=== PATIENT | female | born 1935 | race Caucasian/White ===

== ENCOUNTER 2017-08-26 21:59 | Emergency (ER) | payer MEDICARE, OTHER ==
[~2017-08-26] VITALS: Ht 152.4 cm; Wt 63.5 kg
[2017-08-26 22:00] VITALS: BP 161/93; PULSE 59; RESP 20; TEMP 97.9; O2SAT 94
[2017-08-26] MEDS ORDERED: SODIUM CHLOR 0.9% 1000 ML INJ 1,000 ML IV SCH (22:08)
[2017-08-26] MEDS ORDERED: HYDR-3799 PO (22:14)
[2017-08-26] MEDS ORDERED: FOLI800T PO (22:14)
[2017-08-26] MEDS ORDERED: CLON.1 PO (22:14)
[2017-08-26] MEDS ORDERED: VALS320T6 PO (22:14)
[2017-08-26] MEDS ORDERED: VITATAB43 PO (22:14)
[2017-08-26] MEDS ORDERED: GABA300C5 PO (22:14)
[2017-08-26] MEDS ORDERED: AMLO5TAB2 PO (22:14)
[2017-08-26] MEDS ORDERED: ATEN25TA PO (22:14)
[2017-08-26] MEDS ORDERED: HYDR200T3 PO (22:14)
[2017-08-26] MEDS ORDERED: METH2.5T PO (22:14)
[2017-08-26] MEDS ORDERED: ONDANSETRON HCL 4 MG/2 ML VIAL IV ONE (22:15)
[2017-08-26 22:17] LABS: AUTOMATED NEUTROPHIL # 3.5 TH/MM3 (1.8-7.7); BASOPHIL # 0.1 TH/MM3 (0-0.2); BASOPHIL % 0.9 % (0.0-2.0); EOSINOPHIL # 0.1 TH/MM3 (0-0.4); EOSINOPHIL % 1.3 % (0.0-4.0); HEMATOCRIT 34.1 % (35.0-46.0); HEMO FLAGS DIFF FINAL; LYMPH % 35.5 % (9.0-44.0); LYMPHOCYTE # 2.4 TH/MM3 (1.0-4.8); MEAN CELL VOLUME 88.6 FL (80.0-100.0); MEAN CORPUSCULAR HEMOGLOBIN 29.9 PG (27.0-34.0); MEAN CORPUSCULAR HGB CONC 33.7 % (32.0-36.0); MONO % 9.5 % (0.0-8.0); NEUT % 52.8 % (16.0-70.0); PLATELET COUNT 187 TH/MM3 (150-450); RED BLOOD COUNT 3.85 MIL/MM3 (4.00-5.30); RED CELL DISTRIBUTION WIDTH 13.6 % (11.6-17.2); WHITE BLOOD COUNT 6.7 TH/MM3 (4.0-11.0)
[2017-08-26 22:28] LABS: CHLORIDE 103 MEQ/L (98-107); POTASSIUM 3.6 MEQ/L (3.5-5.1); SODIUM (NA) 136 MEQ/L (136-145)
--- NOTE | 2017-08-26 22:30 | PD ---
HPI Chief Complaint: Chest Pain Time Seen by Provider: 22:06 Travel History International Travel<30 days: No Contact w/Intl Traveler<30days: No Traveled to known affect area: No History of Present Illness HPI The patient is an 82-year-old female that at 8 PM began having chest pain in the lower midline sternal area as well as epigastrium. She had just checked her blood pressure and found that it was high and took some clonidine for this. She does have nausea and diaphoresis. She lives in [place] and called an ambulance from [place]. 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 Neither the patient nor the daughter know which valve this is. She denies any fever or vomiting blood. She denies any blood in the stool or melanotic stools. [facility] Social History Tobacco Use: No Allergies-Medications (Allergen,Severity, Reaction): Coded Allergies: aspirin (Verified Allergy, Unknown, HIVES, 08/26/17) Reported Meds & Prescriptions Reported Meds & Active Scripts Active Reported Folic Acid 0.8 Mg Tab 1 Mg PO DAILY Gabapentin 300 Mg Cap 300 Mg PO HS Methotrexate 2.5 Mg Tab 2.5 Mg PO Q7D Catapres (Clonidine) 0.1 Mg Tab 0.1 Mg PO TID Atenolol 25 Mg Tab 25 Mg PO BID Valsartan-Hydrochlorothiazide 320-25 Mg Tab 1 Tab PO DAILY Amlodipine (Amlodipine Besylate) 5 Mg Tab 5 Mg PO DAILY Vitamin L52-Xmofl Acid (Cobalamine Combinations) 500-400 Mcg Tab 1 Tab PO DAILY Hydroxychloroquine (Hydroxychloroquine Sulfate) 200 Mg Tab 200 Mg PO BID Takw with food Hydralazine HCl 25 Mg Tablet 25 Mg PO BID Physical Exam Narrative GENERAL: The patient is alert, slightly dehydrated-appearing, oriented 3 in moderate apparent distress with the nausea. The patient is actively vomiting when I saw her. The vital signs are normal except for a pulse rate of 59, blood pressure 161/93 and oximetry of 94%. SKIN: Focused skin assessment warm/dry. HEAD: Atraumatic. Normocephalic. EYES: Pupils equal and round. No scleral icterus. No injection or drainage. ENT: No nasal bleeding or discharge. Mucous membranes pink and moist. NECK: Trachea midline. No JVD. CARDIOVASCULAR: Regular rate and rhythm. No murmur appreciated. RESPIRATORY: No accessory muscle use. Clear to auscultation. Breath sounds equal bilaterally. GASTROINTESTINAL: Abdomen soft, with slight tenderness in the midline epigastrium to direct palpation, nondistended. Hepatic and splenic margins not palpable. No guarding or rebound is present. MUSCULOSKELETAL: No obvious deformities. No clubbing. No cyanosis. No edema. NEUROLOGICAL: Awake and alert. No obvious cranial nerve deficits. Motor grossly within normal limits. Normal speech. PSYCHIATRIC: Appropriate mood and affect; insight and judgment normal. Data Data Last Documented VS Vital Signs Date Time Temp Pulse Resp B/P (MAP) Pulse Ox O2 Delivery O2 Flow Rate FiO2 08/26/17 22:40 52 18 141/63 (89) 95 Room Air 08/26/17 22:00 97.9 Orders Orders Complete Blood Count With Diff (08/26/17 22:06) Comprehensive Metabolic Panel (08/26/17 22:06) Troponin I (08/26/17 22:06) B-Type Natriuretic Peptide (08/26/17 22:06) Lipase (08/26/17 22:06) Urinalysis - C+S If Indicated (08/26/17 22:06) Chest, Pa & Lat (08/26/17 22:06) Ondansetron Inj (Zofran Inj) (08/26/17 22:15) Sodium Chlor 0.9% 1000 Ml Inj (Ns 1000 M (08/26/17 22:08) Al-Mag Hy-Si 40-40-4 Mg/Ml Liq (Mag-Al P (08/26/17 22:45) Lidocaine 2% Viscous (Xylocaine 2% Visco (08/26/17 22:45) Famotidine Inj (Pepcid Inj) (08/26/17 22:45) Labs Laboratory Tests Test 08/26/17 22:05 White Blood Count 6.7 TH/MM3 Red Blood Count 3.85 MIL/MM3 Hemoglobin 11.5 GM/DL Hematocrit 34.1 % Mean Corpuscular Volume 88.6 FL Mean Corpuscular Hemoglobin 29.9 PG Mean Corpuscular Hemoglobin Concent 33.7 % Red Cell Distribution Width 13.6 % Platelet Count 187 TH/MM3 Mean Platelet Volume 7.7 FL Neutrophils (%) (Auto) 52.8 % Lymphocytes (%) (Auto) 35.5 % Monocytes (%) (Auto) 9.5 % Eosinophils (%) (Auto) 1.3 % Basophils (%) (Auto) 0.9 % Neutrophils # (Auto) 3.5 TH/MM3 Lymphocytes # (Auto) 2.4 TH/MM3 Monocytes # (Auto) 0.6 TH/MM3 Eosinophils # (Auto) 0.1 TH/MM3 Basophils # (Auto) 0.1 TH/MM3 CBC Comment DIFF FINAL Differential Comment Blood Urea Nitrogen 22 MG/DL Creatinine 0.79 MG/DL Random Glucose 150 MG/DL Total Protein 7.2 GM/DL Albumin 3.6 GM/DL Calcium Level 8.6 MG/DL Alkaline Phosphatase 69 U/L Aspartate Amino Transf (AST/SGOT) 23 U/L Alanine Aminotransferase (ALT/SGPT) 22 U/L Total Bilirubin 0.4 MG/DL Sodium Level 136 MEQ/L Potassium Level 3.6 MEQ/L Chloride Level 103 MEQ/L Carbon Dioxide Level 23.3 MEQ/L Anion Gap 10 MEQ/L Estimat Glomerular Filtration Rate 70 ML/MIN Troponin I LESS THAN 0.02 NG/ML B-Type Natriuretic Peptide 150 PG/ML Lipase 115 U/L [facility] Medical Decision Making Medical Screen Exam Complete: Yes Emergency Medical Condition: Yes Medical Record Reviewed: Yes Interpretation(s) The CBC is normal except for hemoglobin 11.5 and hematocrit of 34.1. The EKG shows sinus bradycardia with a rate of [address] otherwise no acute ST elevation or depression. The complete metabolic profile shows a BUN of 22, GFR of 70, glucose 150 but is otherwise unremarkable. The troponin I is normal and the lipase is normal. The BNP is 150. Differential Diagnosis Gastroesophageal reflux disease, ulcer pain, pancreatitis, electrolyte disorder , anemia, acute coronary syndrome, non-STEMI Narrative Course There is no evidence for acute coronary syndrome. The patient appears to have reproducible pain in the epigastrium. She appears to have reflux esophagitis. She will be given Zantac, omeprazole and Zofran. The patient wants to go home so she will go home and return here if there are any problems. She needs to follow-up with Dr. Arevalo this week or early next week. At this time her blood pressure is 144/63. She is not nauseated and she has no pain other than a slight epigastric pain. Diagnosis Primary Impression: Gastroesophageal reflux disease Additional Impression: Elevated blood pressure reading Additional Instructions: As we discussed, follow-up with Dr. Arevalo, hopefully this week. The Prilosec is one tablet daily and the Zantac is one tablet twice daily. Zofran is one tablet every 6 hours as needed for nausea. Med/Other Pt SpecificInfo: Prescription(s) given Scripts Ondansetron (Zofran) 4 Mg Tab 4 MG PO Q6HR Y for NAUSEA OR VOMITING, #30 TAB 0 Refills Prov: Dewayne Glez MD 08/26/17 Omeprazole (Omeprazole) 20 Mg Tab 20 MG PO DAILY, #30 TAB 0 Refills Prov: Dewayne Glez MD 08/26/17 Ranitidine (Zantac) 150 Mg Tab 150 MG PO BID for Reduce Stomach Acid, #60 TAB 0 Refills Prov: Dewayne Glez MD 08/26/17 Disposition: 01 DISCHARGE HOME Condition: Stable Dewayne Glez MD Aug 26, 2017 22:29
[2017-08-26 22:32] LABS: ANION GAP 10 MEQ/L (5-15); BICARBONATE 23.3 MEQ/L (21.0-32.0)
[2017-08-26 22:33] LABS: BLOOD UREA NITROGEN 22 MG/DL (7-18)
[2017-08-26 22:35] LABS: ALT (GPT) 22 U/L (10-53); AST (GOT) 23 U/L (15-37); GLOMERULAR FILTRATION RATE 70 ML/MIN (>89)
[2017-08-26 22:37] LABS: TOTAL BILIRUBIN ADULT 0.4 MG/DL (0.2-1.0)
[2017-08-26 22:38] LABS: ALKALINE PHOSPHATASE 69 U/L (45-117)
[2017-08-26 22:40] VITALS: BP 141/63; PULSE 52; RESP 18; O2SAT 95
[2017-08-26] MEDS ORDERED: ALUMINUM/MAGNESIUM/SIMETH 30 ML CUP PO ONE (22:45)
[2017-08-26] MEDS ORDERED: FAMOTIDINE 20 MG/2 ML VIAL IV PUSH ONE (22:45)
[2017-08-26] MEDS ORDERED: LIDOCAINE VISCOUS 2% SOLN 15 ML UDC PO ONE (22:45)
--- NOTE | 2017-08-26 22:47 | RADRPT ---
EXAM DATE/TIME: 08/26/2017 22:22 [place] COMPARISON: No previous studies available for comparison. INDICATIONS : Chest pain, weakness, vomiting starting today` MEDICAL HISTORY : None. SURGICAL HISTORY : None. ENCOUNTER: Initial ACUITY: 1 day PAIN SCORE: 5/10 LOCATION: Bilateral chest FINDINGS: No infiltrate, effusion or pneumothorax demonstrated. Heart size upper limits of normal. Thoracic aor ta is tortuous and atherosclerotic. CONCLUSION: No acute cardiopulmonary disease demonstrated. Borderline cardiomegaly. Chris Whitaker MD on August 26, 2017 at 22:45 Board Certified Radiologist. This report was verified electronically.
[2017-08-26 23:10] VITALS: BP 144/63; PULSE 55; RESP 18; O2SAT 95
[2017-08-26] MEDS ORDERED: ZOFR4TAB PO (23:39)
[2017-08-26] MEDS ORDERED: ZANT150T2 PO (23:39)
[2017-08-26] MEDS ORDERED: OMEP20TA PO (23:39)
[2017-08-26 23:40] VITALS: BP 150/63; PULSE 52; RESP 18; O2SAT 94
[2017-08-27 00:20] VITALS: BP 139/72; TEMP 98
--- NOTE | 2017-08-27 17:13 | EKG ---
Date Performed: 08/26/2017 Time Performed: 22:09:51 PTAGE: 82 years EKG: SINUS BRADYCARDIA WITH SINUS ARRHYTHMIA POSSIBLE RIGHT VENTRICULAR CONDUCTION DELAY MODERAT E VOLTAGE CRITERIA FOR LVH, CONSIDER NORMAL VARIANT BORDERLINE ECG NO PREVIOUS TRACING DOCTOR: Nicole Ureña Interpretating Date/Time 08/27/2017 17:12:39
== END 2017-08-27 00:24 | disposition home or self-care (01) ==
LOC: PHED 21:59
DX: K21.9 Gastro-esophageal reflux disease without esophagitis (principal); R03.0 Elevated blood-pressure reading, without diagnosis of hypertension; R00.1 Bradycardia, unspecified
CPT/HCPCS: 71020; 80053; 83690; 83880; 84484; 85025; 93005; 96361; 96374; 96375; 99284; J2405; J7030